=== PATIENT | female | born 1965 | race Caucasian/White ===

== ENCOUNTER 2020-05-29 13:57 | Emergency (ER) | payer OTHER, SELFPAY ==
--- NOTE | 2020-05-29 14:33 | RAD ---
EXAM: CHEST ONE VIEW HISTORY: Covid positive. Fever. COMPARISON: None FINDINGS: The cardiac silhouette and pulmonary vasculature are within normal limits. There are minimal patchy o pacities seen in the left midlung zone and at the left lung base with questionable minimal patchy opacity in the right middle lung zone. No pleural effusion is seen. The osseous structures are intact . IMPRESSION: Patchy opacities within the lungs bilaterally greater on the left and likely reflective of viral pneu monitis which can be seen with Covid 19.
[2020-05-29] MEDS ORDERED: Acetaminophen 325 MG TAB ONE (15:50)
== END 2020-05-29 15:55 | disposition home or self-care (01) ==
LOC: ERS 13:57
DX: U07.1 COVID-19 (principal); I10 Essential (primary) hypertension; K21.9 Gastro-esophageal reflux disease without esophagitis
CPT/HCPCS: 71045

== ENCOUNTER 2024-04-27 08:23 | Outpatient (CLI) | payer OTHER | END 2024-04-27 08:24 | disposition home or self-care (01) | LOC: RAD 08:23 | PROVIDERS: ATTEND Internal Medicine Critical Care Medicine | DX: R06.00 Dyspnea, unspecified (principal) | CPT/HCPCS: 71046 ==